=== PATIENT | male | born 1960 | race Caucasian/White ===

== ENCOUNTER 2024-07-09 20:06 | Emergency (ER) | payer OTHER, SELFPAY ==
[2024-07-09 20:08] VITALS: BP 118/69
[2024-07-09 20:09] VITALS: BP 118/69; BMI 31.0
[2024-07-09 20:38] LABS: % Basophils 0.1 % (0-2); % Eosinophils 1.3 % (0-6); % Immature Granulocytes 1.6 % (0-0.5); % Lymphocytes 33.6 % (20.5-51.1); % Monocytes 7.6 % (1.7-9.3); % Neutrophils 55.8 % (42.2-75.2); Absolute Eosinophils 0.1 10^3/uL (0-0.7); Absolute Immature Granulocytes 0.1 10^3/uL (0-0.05); Absolute Lymphocytes 2.3 10^3/uL (1.2-3.4); Absolute Monocytes 0.5 10^3/uL (0.1-0.6); Absolute Neutrophils 3.8 10^3/uL (1.4-6.5); Hematocrit 39.3 % (39.0-52.0); Hemoglobin 13.9 g/dL (13.0-18.0); Mean Corp Hgb Conc. 35.4 g/dL (33.0-37.0); Mean Corpuscular Hgb 29.8 pg (27.0-31.0); Mean Corpuscular Volume 84.2 fL (80.0-94.0); Mean Platelet Volume 9.9 fL (7.4-10.4); Nucleated Red Blood Cells % 0 % (-); Platelet Count 151 10^3/uL (130-400); Red Blood Cell Count 4.67 10^6/uL (4.70-6.10); Red Cell Dist. Width 12.8 % (11.5-14.5); White Blood Cell Count 6.9 10^3/uL (4.8-10.8)
[2024-07-09 20:49] LABS: AST (SGOT) 32 U/L (17-59); Albumin 4.4 g/dl (3.5-5.0); Alkaline Phosphatase 90 U/L (38-126); Blood Urea Nitrogen 33 mg/dl (9-20); Calcium 8.7 mg/dl (8.4-10.2); Carbon Dioxide 16 mmol/L (22-30); Chloride 109 mmol/L (98-107); Estimated Creatinine Clearance 98 ml/min; Glucose 133 mg/dl (70-99); Potassium 4.1 mmol/L (3.5-5.1); Sodium 142 mmol/L (135-145); Total Bilirubin 0.7 mg/dl (0.2-1.3); Total Protein 6.4 g/dl (6.3-8.2); eGFR > 60.00
[2024-07-09 20:58] LABS: ALT (SGPT) 46 U/L (0-50)
[2024-07-09 21:00] VITALS: BP 112/68
[2024-07-09 22:01] VITALS: BP 102/53
[2024-07-09 23:20] VITALS: BP 110/80
--- NOTE | 2024-07-09 23:46 | ED.GENMED ---
History of Present Illness
General
Chief Complaint: Seizure
Source: patient
Exam Limitations: none
Time Seen by Provider: 07/09/24 23:33
History of Present Illness
History of Present Illness:
63-year-old male presents via EMS from place of dining after having a seizure. 5 weeks ago he had a glioblastoma removed from his right frontal lobe. He had a follow-up visit with his neurosurgeon 4 days ago after an MRI that he had that same day.
The MRI looked well. They feel like they got 99.9 percent of the tumor. He had been on Keppra postoperatively however after the well visit, his Keppra was discontinued. His who accompanies him states he had a seizure lasted around 2 minutes
while eating dinner he had a postictal phase. At the time my exam he is returned to baseline. Patient denies headache. He states he wants to go home. He denies vision change or weakness. No other complaints at this time
Phy Exam
Physical Exam
Physical Exam:
General: Well-appearing male no acute respiratory distress
HEENT normocephalic surgical incision noted right temporal skull pupils equal round reactive to light heart: Regular rate and rhythm
Lungs: Clear no wheeze
Neurologic exam: Alert and oriented pupils equal round reactive to light extraocular's are intact finger-nose [id number] intact good strength to the upper and lower extremities no drift
Course
Orders/Labs/Results
Orders:
Orders
07/09/24 20:25
Complete Blood Count/With Diff Urgent
Comprehensive Metabolic Panel Urgent
07/09/24 23:46
Levetiracetam Injectable [Keppra] 1,000 mg IV NOW STA
Abnormal Lab Results
07/09/24
20:25
RBC 4.67 L 10^6/uL
(4.70-6.10)
Abs Immat Gran (auto) 0.1 H 10^3/uL
(0-0.05)
Immature Gran % 1.6 H %
(0-0.5)
Chloride 109 H mmol/L
(98-107)
Carbon Dioxide 16 L mmol/L
(22-30)
BUN 33 H mg/dl
(9-20)
Glucose 133 H mg/dl
(70-99)
07/09/24 20:25
07/09/24 20:25
Vital Signs
Initial and Last Documented VS:
Initial Vital Signs
BP
118/69
07/09/24 20:08
Last Documented Vital Signs
Temp Pulse Resp BP Pulse Ox
98.1 F 91 20 102/53 94
07/09/24 20:09 07/09/24 23:00 07/09/24 23:00 07/09/24 22:01 07/09/24 23:00
MDM/Problems Addressed
Differential Diagnosis Includes:
Patient had breakthrough seizure. History of recent glioblastoma resection. Patient did speak with his neurosurgeon through text message who stated that it is not uncommon for him to have seizures postoperatively. He was just discontinued off of
the Keppra. Will reload him with Keppra today. Offered CT of head secondary to the recent seizure and recent surgery however patient declined stating that he just had an MRI couple days ago.
*Critical Care Note
Total Time (30-74mins, 75-104mins- exclusive of procedures): Not Applicable
ED Attending Note
-
Portions of this chart may have been created with voice recognition software.� Occasional wrong word or��sound alike� substitutions may have occurred due to the inherent limitations of voice recognition software.
Discharge Plan
Departure
Patient Disposition: Home (Routine Discharge)
Date of Disposition: 07/09/24
Time of Disposition: 23:49
Patient with high blood pressure during this ER visit?: No
Discharge Problem:
Seizure
Instructions: Seizures, Adult (DC)
Prescriptions:
New
levetiracetam [Keppra] 500 mg tablet
500 mg PO BID Qty: 30 0RF
Referrals:
Yonatan Casey MD [Family Provider] -
Activity Restrictions/Additional Instructions:
Please resume your Keppra until seen by your neurosurgeon. Return here if worse.
Interventions
Interventions:
*Risk Screen - Suicide Last Done: 07/09/24 20:13
*General Assessment Last Done: 07/09/24 20:13
*Neglect/Abuse Screening Last Done: 07/09/24 20:13
*ED- Fall Risk Assessment Last Done: 07/09/24 20:13
*ED COVID-19 Vaccine History Last Done: 07/09/24 20:13
ED- Cardiac Assessment Last Done: 07/09/24 20:31
ED- Neurological Assessment Last Done: 07/09/24 20:31
ED- Pulmonary Assessment Last Done: 07/09/24 20:31
Discharge Date and Time
Print Language: CUBAN
[2024-07-09] MEDS: KEPPRA 1000 MG IV (23:52)
== END 2024-07-10 00:02 | disposition home or self-care (01) ==
LOC: EMR 20:06
PROVIDERS: Emergency Medicine; EMERGENCY PHYSICIAN Emergency Medicine; FAMILY PHYSICIAN Family Medicine
DX: R56.9 Unspecified convulsions (principal)
CPT/HCPCS: 99284; 96374; 80053; 85025